=== PATIENT | male | born 1990 | race Caucasian/White ===

== ENCOUNTER 2019-12-14 00:31 | Emergency (ER) | payer OTHER, SELFPAY ==
--- NOTE | ~2019-12-14 | CT_ITS ---
EXAMINATION: CT abdomen pelvis w con EXAM DATE: 12/14/2019 01:54 INDICATION: Right lower quadrant pain, hematochezia. TECHNIQUE: Spiral CT of the abdomen and pelvis was performed following intravenous injection of 100 m L Omnipaque 350. Axial, coronal and sagittal images were reviewed. The dose-length product (DLP) fo r this examination was 619.24 mGy-cm. The exposure was tailored according to patient size (auto mA e xposure control), and iterative reconstruction (ASIR) was used as additional dose reduction technique . There is no prior study for comparison. FINDINGS: There is a splenule. The liver, spleen, adrenal glands and pancreas are unremarkable. The gallbladder is contracted but otherwise unremarkable. Portal and splenic veins are patent. Kidneys enhance symmetrically. There is no hydronephrosis. The prostate is unremarkable. The bladder is unremarkable. There is no retroperitoneal or pelvic lymphadenopathy. Tiny umbilical fat-containing hernia. The appendix is normal. The stomach and small bowel are unremarkable. There is expected amount of c olonic stool. No free intraperitoneal gas. The heart is normal in size. There are no pericardial or pleural effusions. The lung bases are unremarkable. The bones are unremarkable. IMPRESSION: 1. No acute intra-abdominal findings. Reviewed, dictated and finalized at location A.
[2019-12-14 00:33] VITALS: BP 146/96; PULSE 64; RESP 19; TEMP 36.7; O2SAT 100
--- NOTE | 2019-12-14 00:55 | ED.ABDPAIN ---
HPI - Abdominal Pain General Chief Complaint: Abdominal Pain Stated Complaint: abd pain Time Seen by Provider: 12/14/19 00:44 Source: patient Mode of arrival: ambulatory Limitations: no limitations History of Present Illness HPI narrative: This patient is a 29 yo male who presents for evaluation of lower abdominal pain and blood in stool. He states he developed lower abdominal cramping 7 hours ago. He later developed diarrhea with multiple episodes. He became concerned because his last BM around 930 pm he saw blood with his stool. He continues to have intermittent lower abdominal cramping. He denies nausea, vomiting or fever. He did have lightheadedness at onset of his initial pain. He also reports becoming diaphoretic at that time. Related Data Allergies Allergy/AdvReac Type Severity Reaction Status Date / Time No Known Allergies Allergy Verified 11/23/16 11:25 Review of Systems Review of Systems: All systems reviewed & are unremarkable except as noted in HPI and below Constitutional: Constitutional: Denies chills and Denies fever(s) Respiratory: Respiratory: Denies cough and Denies dyspnea Gastrointestinal: Gastrointestinal: Reports abdominal pain, Reports diarrhea and Denies nausea PMFSH Past Medical History Medical History (Updated 12/14/19 @ 02:48 by Britany Baez MD) Patient denies medical problems Family History Family History (Updated 05/17/10 @ 12:20 by DOCTOR UNKNOWN) Other Carcinoma of colon Diabetes mellitus Family history of coronary artery disease Family history of malignant neoplasm of ovary Family history of primary malignant neoplasm of liver Hypertension Social History Social History Smoking status: Never smoker Alcohol intake: never Gender identity (if verbalized by the patient): Male Exam Narrative: Exam Narrative: GENERAL: Well-appearing, well-nourished, and in no acute distress. HEAD: Normocephalic, atraumatic EYES: PERRLA and EOMI, conjunctiva clear without discharge THROAT:Mucous membranes moist, Oropharynx normal without erythema, exudate, peritonsillar swelling or fluctuance NECK: Supple, without lymphadenopathy or mass RESPIRATORY: No respiratory distress, Airway patent, Respirations non-labored, Clear to auscultation without rales, rhonchi or wheeze HEART: Regular rate and rhythm. No murmur heard. Normal peripheral pulses. ABDOMEN: Soft, LLQ tenderness, nondistended, normal active bowel sounds. No masses. No rebound or guarding, No organomegaly. EXTREMITIES: No edema, normal strength with full range of motion. SKIN: Warm, dry, normal color without rash NEURO: Alert and oriented x3. CN 2-12 grossly intact. No focal deficits. PSYCH: Normal mood and affect. GI: Rectal Exam: No External hemorrhoid(s) present, No hemorrhoids and other (yellow stool with faint drop guaic positive) Course Reevaluation(s) Reevaluation #1: Patient states he feels better and he has no pain. I discussed CT showins enterocolitis. He will be started on antibiotics due to bloody stools. Date: 12/14/19 Time: 02:44 Vital Signs Vital signs: Vital Signs Temperature 98.1 F 12/14/19 00:33 Pulse Rate 64 12/14/19 00:33 Respiratory Rate 19 12/14/19 00:33 Blood Pressure 146/96 H 12/14/19 00:33 Pulse Oximetry 100 12/14/19 00:33 Temperature 98.1 F 12/14/19 00:33 Pulse Rate 74 12/14/19 03:16 Respiratory Rate 18 12/14/19 03:16 Blood Pressure 132/80 12/14/19 03:16 Pulse Oximetry 98 12/14/19 03:16 MDM - Abdominal Pain Lab Data Attestation: I reviewed the patient's lab results. Result diagrams: 12/14/19 00:48 12/14/19 00:48 Labs: Lab Results 12/14/19 12/14/19 12/14/19 Range/Units 00:48 00:48 01:33 WBC 12.2 H (4.5-10.0) K/mm3 RBC 4.98 (4.6-6.20) M/mm3 Hgb 16.3 (14.0-18.0) g/dL Hct 46.3 (42.0-52.0) % MCV 93.0 (80-100) fl MCH 32.7 (26-34) pg MCHC 35.2 (32-36) g/
[2019-12-14 00:56] LABS: Basophils Absolute Auto 0.1 K/mm3 (0.0-0.1); Basophils Percent Auto 0.4 % (0.2-1.2); Eosinophils Absolute Auto 0.1 K/mm3 (0-0.3); Eosinophils Percent Auto 1.1 % (0-4.4); Hematocrit 46.3 % (42.0-52.0); Hemoglobin 16.3 g/dL (14.0-18.0); Immature Granulocyte Absolute 0.06 K/mm3 (0.00-0.031); Immature Granulocyte Percent A 0.5 % (0-0.5); Lymphocytes Absolute Auto 1.32 K/mm3 (0.9-3.2); Lymphocytes Percent Auto 10.8 % (18.3-44.2); Mean Corpuscular HGB Conc 35.2 g/dl (32-36); Mean Corpuscular Hemoglobin 32.7 pg (26-34); Mean Platelet Volume 10.4 fl (7.4-10.4); Monocytes Absolute Auto 1.1 K/mm3 (0.1-0.6); Monocytes Percent Auto 8.8 % (2.6-8.5); Neutrophils Absolute Auto 9.6 K/mm3 (1.3-6.7); Neutrophils Percent Auto 78.4 % (45.5-73.1); Platelet Count Result 235 k/mm3 (150-375); Red Blood Count 4.98 M/mm3 (4.6-6.20); Red Cell Distribution Width 11.9 % (11.5-14.5); White Blood Count 12.2 K/mm3 (4.5-10.0)
[2019-12-14] MEDS: ONDANSETRON INJ 4 MG/2 ML VIAL IV PUSH (01:00)
[2019-12-14 01:15] LABS: Alanine Aminotransferase 28 U/L (4-50); Albumin Level 4.7 g/dL (3.5-5.1); Alkaline Phosphatase 54 U/L (38-126); Aspartate Amino Transferase 29 U/L (17-59); Bilirubin,Total 0.3 mg/dL (0.2-1.3); Blood Urea Nitrogen 15 mg/dL (9-20); Calcium 9.3 mg/dL (8.4-10.2); Carbon Dioxide 27 mmol/L (22-30); Chloride 101 mmol/L (98-107); Estimated CRCL calculation 122 ml/min; Estimated Glomerular Filt Rate > 60; Glucose 129 mg/dL (75-110); Lipase 63 U/L (23-300); Sodium 136 mmol/L (137-145)
[2019-12-14 01:47] LABS: Add Urine Microscopic? NO; Appearance Urine Clear (Clear); Bilirubin Urine Negative (Negative); Blood Urine Negative (Negative); Color Urine Yellow (Yellow); Glucose Urine UA Negative (Negative); Ketones Urine Negative (Negative); Leukocyte Esterase Ur Negative LEU/UL (Negative); Nitrate Urine Negative (Negative); Protein Urine Negative (Negative); Specific Grav Ur 1.014 (1.001-1.035); Urobilinogen Urine Negative mg/dL (<2.0)
[2019-12-14 02:41] VITALS: BP 124/81; BP 132/91; PULSE 67; PULSE 72; PULSE 74; RESP 18; O2SAT 100
[2019-12-14 02:43] VITALS: BP 125/86; PULSE 70
[2019-12-14 03:16] VITALS: BP 132/80; PULSE 74; RESP 18; O2SAT 98
== END 2019-12-14 03:30 | disposition home or self-care (01) ==
PROVIDERS: Emergency Provider General Practice; PCP Family Medicine
DX: K52.9 Noninfective gastroenteritis and colitis, unspecified (principal)
CPT/HCPCS: 36415; 74177; 80053; 81003; 83690; 85025; 96365; 96375; 99284; J0131; J2405; Q9967